=== PATIENT | male | born 1975 | race Caucasian/White ===

== ENCOUNTER 2018-12-05 18:34 | Observation (INO) ==
[2018-12-05] MEDS ORDERED: LABETALOL HCL IV 5 MG/ML 20ML IV STA ×3 (19:03→20:54)
[2018-12-05] MEDS ORDERED: SODIUM CHLORIDE 0.9% 1000ML 1,000 ML IV SCH (19:15)
--- NOTE | 2018-12-05 19:31 | CT Scan Report ---
CT OF THE HEAD WITHOUT CONTRAST CLINICAL HISTORY: left sided numbness, severe HTN COMPARISON STUDY: No previous studies for comparison. CT DOSE: 537.48 mGy.cm TECHNIQUE: Helical axial images of the head were obtained without IV contrast. Automated exposure con trol was utilized for the study. A dose lowering technique was utilized adhering to the principles o f ALARA. FINDINGS: No acute intracranial hemorrhage, midline shift or mass effect is present. Brain volume is normal. Ventricular system is normal. The basilar cisterns are patent. There are no extra-axial colle ctions. Nunez-white differentiation is maintained. There are no findings to suggest acute dural sinus thrombosis or acute territorial infarct. There are no significant calvarial abnormalities. There may be a few opacified left mastoid air cells. Visualized portions of the sinuses are clear. IMPRESSION: No acute intracranial findings. Electronically signed by: Brennen Ventura M.D. 12/05/2018 7:30 PM
[2018-12-05 19:47] LABS: Basophils # (auto) 0.03 K/uL (0-0.2); Basophils % (auto) 0.3 %; Eosinophils % (auto) 1.1 %; Hematocrit (blood only) 42.6 % (42-52); Hemoglobin 15.4 g/dL (14.0-18.0); Immature Granulocytes # (auto) 0.02 K/uL (0.00-0.02); Immature Granulocytes % (auto) 0.2 %; Lymphocytes # (auto) 3.14 K/uL (1.2-3.4); Lymphocytes % (auto) 33.4 %; Mean Corpuscular Hgb Conc 36.2 g/dL (32-36); Mean Corpuscular Volume 85.7 fL (80-100); Mean Platelet Volume 9.8 fL (7.4-10.4); Monocytes # (auto) 0.62 K/uL (0.11-0.59); Monocytes % (auto) 6.6 %; Neutrophils # (auto) 5.48 K/uL (1.4-6.5); Neutrophils % (auto) 58.4 %; Platelet Count 189 K/uL (130-400); RDW Coefficient of Variation 11.8 % (11.5-14.5); RDW Standard Deviation 36.7 fL (36.4-46.3); Red Blood Count 4.97 M/uL (4.7-6.1); White Blood Count 9.39 K/uL (4.8-10.8)
--- NOTE | 2018-12-05 19:51 | XRay Report ---
XR chest 1V portable CLINICAL HISTORY: weakness COMPARISON STUDY: No previous studies for comparison. FINDINGS: Lung volumes are normal. Lungs are clear. There is no pneumothorax or pleural effusion. Car diac size is normal. Mediastinal contours are normal. There is no evidence for pulmonary edema. IMPRESSION: No acute cardiopulmonary findings. Electronically signed by: Brennen Ventura M.D. 12/05/2018 7:49 PM
[2018-12-05] MEDS ORDERED: LORazepam 1 MG/2 ML VIAL IV STA (19:58)
[2018-12-05 20:03] LABS: Appearance Urine Clear (Clear); Bilirubin Urine Negative (Negative); Color Urine Yellow; Glucose Urine UA Negative (Negative); Ketones Urine Negative (Negative); Leukocyte Esterase Urine Negative (Negative); Nitrite Urine Negative (Negative); Protein Urine Negative (Negative); Specific Gravity Urine 1.014 (1.000-1.030); Urobilinogen Urine Negative (Negative)
[2018-12-05 20:04] LABS: Alanine Aminotransferase 42 U/L (12-78); Albumin Level 4.2 gm/dl (3.4-5.0); Aspartate Aminotransferase 19 U/L (15-37); BUN Creatinine Ratio 12.7 (10-20); Blood Urea Nitrogen 17 mg/dl (7-18); Calcium 8.9 mg/dl (8.5-10.1); Carbon Dioxide 30 mmol/L (21-32); Chloride 100 mmol/L (98-107); Creatinine Clr Calc Pharmacy 86.1 ml/min; Est GFR (African American) 74.8; Est GFR (Non-African American) 64.6; Glucose 98 mg/dl (70-99); Magnesium 1.9 mg/dl (1.8-2.4); Potassium 3.6 mmol/L (3.5-5.1); Sodium 137 mmol/L (136-145)
[2018-12-05 20:15] LABS: Albumin Globulin Ratio 1.1 (0.9-2); Alkaline Phosphatase 74 U/L (45-117); Bilirubin,Total 0.6 mg/dl (0.2-1); Total Protein 8.2 gm/dl (6.4-8.2); Troponin I < 0.015 ng/ml (0-0.045)
[2018-12-05 20:28] LABS: T4 Free Thyroxine 0.85 ng/dl (0.8-1.6)
[2018-12-05] MEDS ORDERED: ASPIRIN CHEW 324 MG PO STA (20:46)
--- NOTE | 2018-12-05 21:17 | Emergency Department Note ---
Entered by Eugene Torres acting as a scribe for ED Provider Note CHIEF COMPLAINT: Left sided tingling/HTN HISTORY OF PRESENT ILLNESS: The patient is a 43 year old male who presents to the Emergency Room with complaints of constant numbness and tingling in the left arm that began about 25 minutes ago. The patient also complains of numbness and tingling along the left side of his face in addition to the left arm/hand. The patient went to see his primary care physician today who found his systolic blood pressure to be in the 180s as well. He started the patient on 75 mg of Metoprolol and referred him to the ED. He has felt well for the past two days, and has never felt these symptoms in the past. The patient admits a history of anxiety and depression and has been under a significant amount of stress lately. He notes that his brother ended his own life a few weeks ago and that he has felt "overwhelmed" at work since he returned. He adds that he did feel some "tightness" in his chest today before he had to give a big presentation. The patient does have a history of alcohol abuse and notes that he would drink about 6 beers per day Monday/Monday and on weekends. He has cut back on this alcohol intake significantly. The patient denies any personal or family history of strokes, heart attacks, or diabetes. Pt denies LOC, fevers, chills, diaphoresis, visual changes, neck pain, nausea, vomiting, abdominal pain, back pain, melena, hematochezia, urinary symptoms, numbness, weakness, lymphadenopathy, rash, or other complaints. REVIEW OF SYSTEMS: See HPI for pertinent positives and negatives. A total of ten systems were reviewed and were otherwise negative. PMHx/PSHx: HTN Cellulitis anxiety/depression SOCIAL HISTORY: Patient lives at home. Employed PHYSICAL EXAM: GENERAL: Awake, alert, well appearing, no distress HENT: Normocephalic, atraumatic. TM's normal. Oropharynx unremarkable. EYES: PERRL. EOMI. Normal conjunctiva. Sclera non-icteric. NECK: Supple. No nuchal rigidity. FROM. No bruit. RESPIRATORY: Breath sounds equal. No wheezes. No rhonchi. Normal respiratory effort. CARDIAC: Normal rate. Regular rhythm. No murmurs. No rubs. No JVD. GI: Soft, non distended. No tenderness to palpation. No rebound or guarding. No masses. RECTAL: Deferred. MUSCULOSKELETAL: Unremarkable. No edema. No discoloration. Gross motor strength symmetric. NEURO: Cranial nerves 2-12 grossly intact. There is subjective numbness/ tingling to the left maxillary area of the trigeminal nerve, tingling to the left 4/5th digit. Normal sensorium. No sensory or motor deficits noted. Speech normal. No pronator drift. SKIN: No rash or jaundice noted. LYMPH: No adenopathy. EMERGENCY DEPARTMENT COURSE: 1853: Past medical records reviewed. The patient was evaluated in room A2, and a complete history and physical examination were performed. 1927: I checked on the patient. He notes a complete resolution of his symptoms. 2049: I updated the patient. 2055: I reviewed the patient's case with Dr. Rain Traylor Hospitalist. He will evaluate the patient for further management. MEDICAL DECISION MAKING: Nursing notes reviewed and agree them. The patient's history was concerning for left facial numbness and left arm numbness Differential diagnosis: Etiologies such as CVA, TIA, hypertensive emergency, ICH, metabolic, infection, hypo/hyperglycemia, electrolyte abnormalities, cardiac sources, intracerebral event, toxicologic, neurologic, as well as others were entertained. Physical examination: As above. The patient was significantly hypertensive ER treatment provided: IV Lock Continuous cardiac monitoring IV labetalol 10 mg x2, third dose ordered however the patient's blood pressure improved before this was administered Oral aspirin IV Ativan On reassessment the patient felt better. His blood pressure improved but he was still very hypertensive Diagnostics interpretation by me: ECG: Normal. No ischemia. The labs revealed an unremarkable CBC and chemistry panel. LFTs and troponin negative. TSH borderline but not significantly abnormal. Free T4 normal. Imaging studies: CT scan of the head was negative for acute pathology. Chest x-ray was negative. The patient had severe hypertension. He was treated with IV labetalol. His facial and arm numbness were concerning for TIA/CVA. His symptoms resolved in the emergency department. Due to the severe hypertension further management in the hospital was felt to be most appropriate. Consultation: A consultation was placed with the hospitalist. The case was discussed and diagnostics were reviewed. The patient was evaluated in the ER for further treatment. IMPRESSION: Hypertensive emergency Left facial numbness Left arm numbness CRITICAL CARE: I have personally spent greater than 36 minutes of critical care time in the direct management of this patient. This includes bedside care, interpretation of diagnostic studies, and testing, discussion with consultants, patient, and other required patient management activities. This 36 minutes is in excess of all separately billable procedures. PLAN: Admit The scribe's documentation has been prepared under my direction and personally reviewed by me in its entirety. I confirm that the note above accurately reflects all work, treatment, procedures, and medical decision making performed by me. Impression & Plan Hypertensive emergency, Left facial numbness, Left arm numbness Past Med/Surg History Medical History Anxiety Depression HTN (hypertension) Social History current occupational status: employed Feels Safe at Home: Yes Smoking Status: Never smoker Preferred Language: French Results & Data Vital Signs Vital Signs - 24 hr 12/05/18 18:34 12/05/18 18:37 12/05/18 18:58 Temperature 37.2 C Temperature Source Oral Sepsis Recent Fever Within 48 Hours No Sepsis Action Taken by Nursing No Action Required Pulse Rate 90 87 Pulse Rate [Apical] Pulse Rhythm Pulse Rhythm [Apical] Pulse Strength [Apical] Respiratory Rate 18 15 Respiratory Effort / Characteristics Non-Labored Spontaneous Respiratory Depth Normal Respiratory Pattern Regular Blood Pressure 235/137 H 202/146 H Blood Pressure [Right Arm] Blood Pressure Mean 169 164 Blood Pressure Mean [Right Arm] Blood Pressure Position Sitting Blood Pressure Position [Right Arm] Pulse Oximetry 97 98 Oxygen Delivery Method Room Air Room Air Oxygen Flow Rate 100 12/05/18 19:01 12/05/18 19:09 12/05/18 19:15 Temperature Temperature Source Sepsis Recent Fever Within 48 Hours Sepsis Action Taken by Nursing Pulse Rate 88 84 82 Pulse Rate [Apical] Pulse Rhythm Pulse Rhythm [Apical] Pulse Strength [Apical] Respiratory Rate 12 14 22 Respiratory Effort / Characteristics Respiratory Depth Respiratory Pattern Blood Pressure 215/142 H Blood Pressure [Right Arm] Blood Pressure Mean 166 Blood Pressure Mean [Right Arm] Blood Pressure Position Blood Pressure Position [Right Arm] Pulse Oximetry 97 97 96 Oxygen Delivery Method Oxygen Flow Rate 12/05/18 19:16 12/05/18 19:28 12/05/18 19:30 Temperature Temperature Source Sepsis Recent Fever Within 48 Hours Sepsis Action Taken by Nursing Pulse Rate 84 83 Pulse Rate [Apical] Pulse Rhythm Pulse Rhythm [Apical] Pulse Strength [Apical] Respiratory Rate 15 16 Respiratory Effort / Characteristics Respiratory Depth Respiratory Pattern Blood Pressure 195/135 H 201/135 H Blood Pressure [Right Arm] Blood Pressure Mean 155 157 Blood Pressure Mean [Right Arm] Blood Pressure Position Blood Pressure Position [Right Arm] Pulse Oximetry 97 95 Oxygen Delivery Method Oxygen Flow Rate 12/05/18 19:31 12/05/18 19:39 12/05/18 19:45 Temperature Temperature Source Sepsis Recent Fever Within 48 Hours Sepsis Action Taken by Nursing Pulse Rate 82 83 81 Pulse Rate [Apical] Pulse Rhythm Pulse Rhythm [Apical] Pulse Strength [Apical] Respiratory Rate 17 23 19 Respiratory Effort / Characteristics Respiratory Depth Respiratory Pattern Blood Pressure 201/137 H 197/137 H Blood Pressure [Right Arm] Blood Pressure Mean 158 157 Blood Pressure Mean [Right Arm] Blood Pressure Position Blood Pressure Position [Right Arm] Pulse Oximetry 96 97 96 Oxygen Delivery Method Oxygen Flow Rate 12/05/18 19:46 12/05/18 19:54 12/05/18 20:00 Temperature Temperature Source Sepsis Recent Fever Within 48 Hours Sepsis Action Taken by Nursing Pulse Rate 81 82 83 Pulse Rate [Apical] Pulse Rhythm Regular Pulse Rhythm [Apical] Pulse Strength [Apical] Respiratory Rate 16 20 19 Respiratory Effort / Characteristics Respiratory Depth Respiratory Pattern Blood Pressure 183/132 H Blood Pressure [Right Arm] Blood Pressure Mean 149 Blood Pressure Mean [Right Arm] Blood Pressure Position Blood Pressure Position [Right Arm] Pulse Oximetry 94 96 Oxygen Delivery Method Room Air Oxygen Flow Rate 12/05/18 20:01 12/05/18 20:15 12/05/18 20:16 Temperature Temperature Source Sepsis Recent Fever Within 48 Hours Sepsis Action Taken by Nursing Pulse Rate 84 86 83 Pulse Rate [Apical] Pulse Rhythm Pulse Rhythm [Apical] Pulse Strength [Apical] Respiratory Rate 18 19 21 Respiratory Effort / Characteristics Respiratory Depth Respiratory Pattern Blood Pressure 186/132 H 197/133 H Blood Pressure [Right Arm] Blood Pressure Mean 150 154 Blood Pressure Mean [Right Arm] Blood Pressure Position Blood Pressure Position [Right Arm] Pulse Oximetry Oxygen Delivery Method Oxygen Flow Rate 12/05/18 20:30 12/05/18 20:31 12/05/18 20:43 Temperature Temperature Source Sepsis Recent Fever Within 48 Hours Sepsis Action Taken by Nursing Pulse Rate 85 83 80 Pulse Rate [Apical] Pulse Rhythm Pulse Rhythm [Apical] Pulse Strength [Apical] Respiratory Rate 19 18 22 Respiratory Effort / Characteristics Respiratory Depth Respiratory Pattern Blood Pressure 185/134 H 200/139 H Blood Pressure [Right Arm] Blood Pressure Mean 151 159 Blood Pressure Mean [Right Arm] Blood Pressure Position Blood Pressure Position [Right Arm] Pulse Oximetry Oxygen Delivery Method Oxygen Flow Rate 12/05/18 20:45 12/05/18 20:46 12/05/18 21:27 Temperature Temperature Source Sepsis Recent Fever Within 48 Hours Sepsis Action Taken by Nursing Pulse Rate 82 83 Pulse Rate [Apical] 85 Pulse Rhythm Pulse Rhythm [Apical] Regular Pulse Strength [Apical] Normal Respiratory Rate 22 27 H 20 Respiratory Effort / Characteristics Non-Labored Respiratory Depth Normal Respiratory Pattern Regular Blood Pressure 196/132 H Blood Pressure [Right Arm] 160/109 H Blood Pressure Mean 153 Blood Pressure Mean [Right Arm] 126 Blood Pressure Position Blood Pressure Position [Right Arm] Sitting Pulse Oximetry 99 Oxygen Delivery Method Room Air Oxygen Flow Rate 12/05/18 22:00 Temperature Temperature Source Sepsis Recent Fever Within 48 Hours Sepsis Action Taken by Nursing Pulse Rate Pulse Rate [Apical] 83 Pulse Rhythm Pulse Rhythm [Apical] Regular Pulse Strength [Apical] Normal Respiratory Rate 20 Respiratory Effort / Characteristics Respiratory Depth Normal Respiratory Pattern Regular Blood Pressure Blood Pressure [Right Arm] 160/109 H Blood Pressure Mean Blood Pressure Mean [Right Arm] 126 Blood Pressure Position Blood Pressure Position [Right Arm] Sitting Pulse Oximetry 99 Oxygen Delivery Method Room Air Oxygen Flow Rate Home Medications Current Medication List: was personally reviewed by me Laboratory Data Attestation: I reviewed the patient's lab results. Result diagrams: 12/05/18 19:30 12/05/18 19:30 Lab Results 12/05/18 12/05/18 12/05/18 Range/Units 18:40 19:30 19:30 WBC 9.39 (4.8-10.8) K/uL RBC 4.97 (4.7-6.1) M/uL Hgb 15.4 (14.0-18.0) g/dL Hct 42.6 (42-52) % MCV 85.7 (80-100) fL MCH 31.0 (25-34) pg MCHC 36.2 H (32-36) g/dL RDW Std Deviation 36.7 (36.4-46.3) fL RDW Coeff of Kei 11.8 (11.5-14.5) % Plt Count 189 (130-400) K/uL MPV 9.8 (7.4-10.4) fL Immature Gran % (Auto) 0.2 % Neut % (Auto) 58.4 % Lymph % (Auto) 33.4 % Mccone % (Auto) 6.6 % Eos % (Auto) 1.1 % Baso % (Auto) 0.3 % Immature Gran # (Auto) 0.02 (0.00-0.02) K/uL Neut # (Auto) 5.48 (1.4-6.5) K/uL Lymph # (Auto) 3.14 (1.2-3.4) K/uL Mccone # (Auto) 0.62 H (0.11-0.59) K/uL Eos # (Auto) 0.10 (0-0.5) K/uL Baso # (Auto) 0.03 (0-0.2) K/uL Sodium 137 (136-145) mmol/L Potassium 3.6 (3.5-5.1) mmol/L Chloride 100 (98-107) mmol/L Carbon Dioxide 30 (21-32) mmol/L Anion Gap 7.0 (3-11) BUN 17 (7-18) mg/dl Creatinine 1.33 (0.6-1.4) mg/dl Est Cr Clr Drug Dosing 86.1 ml/min Est GFR ( Amer) 74.8 Est GFR (Non-Af Amer) 64.6 BUN/Creatinine Ratio 12.7 (10-20) Glucose 98 (70-99) mg/dl Calcium 8.9 (8.5-10.1) mg/dl Magnesium 1.9 (1.8-2.4) mg/dl Total Bilirubin 0.6 (0.2-1) mg/dl AST 19 (15-37) U/L ALT 42 (12-78) U/L Alkaline Phosphatase 74 (45-117) U/L Troponin I < 0.015 (0-0.045) ng/ml Total Protein 8.2 (6.4-8.2) gm/dl Albumin 4.2 (3.4-5.0) gm/dl Globulin 4.0 (2.5-4.0) gm/dl Albumin/Globulin Ratio 1.1 (0.9-2) TSH 4.650 H (0.300-4.500) uIu/ml Free T4 0.85 (0.8-1.6) ng/dl Urine Color Yellow Urine Appearance Clear (Clear) Urine pH 6.0 (4.5-7.5) Ur Specific Beverly 1.014 (1.000-1.030) Urine Protein Negative (Negative) Urine Glucose (UA) Negative (Negative) Urine Ketones Negative (Negative) Urine Blood Negative (Negative) Urine Nitrite Negative (Negative) Urine Bilirubin Negative (Negative) Urine Urobilinogen Negative (Negative) Ur Leukocyte Esterase Negative (Negative) Administered Medications Sodium Chloride (Nss 1000ml) 1,000 mls @ 125 mls/hr IV .Q8H ANAYELI Stop: 12/06/18 03:14 Last Admin: 12/05/18 20:49 Dose: 125 mls/hr Discontinued Medications Lorazepam (Ativan) 1 mg in 2 mls @ 2 mls/min IV NOW STA Stop: 12/05/18 19:59 Last Admin: 12/05/18 20:49 Dose: 2 mls/min Labetalol HCl (Normodyne) 10 mg IV NOW STA Stop: 12/05/18 19:04 Last Admin: 12/05/18 19:12 Dose: 10 mg Labetalol HCl (Normodyne) 10 mg IV NOW STA Stop: 12/05/18 19:36 Last Admin: 12/05/18 19:44 Dose: 10 mg Imaging Data Attestation: I personally reviewed and interpreted this imaging study as follows : Radiologist's Impression: CT OF THE HEAD WITHOUT CONTRAST CLINICAL HISTORY: left sided numbness, severe HTN COMPARISON STUDY: No previous studies for comparison. CT DOSE: 537.48 mGy.cm TECHNIQUE: Helical axial images of the head were obtained without IV contrast. Automated exposure control was utilized for the study. A dose lowering technique was utilized adhering to the principles of ALARA. FINDINGS: No acute intracranial hemorrhage, midline shift or mass effect is present. Brain volume is normal. Ventricular system is normal. The basilar cisterns are patent. There are no extra-axial collections. Nunez-white differentiation is maintained. There are no findings to suggest acute dural sinus thrombosis or acute territorial infarct. There are no significant calvarial abnormalities. There may be a few opacified left mastoid air cells. Visualized portions of the sinuses are clear. IMPRESSION: No acute intracranial findings. Electronically signed by: Brennen Ventura M.D. 12/05/2018 7:30 PM XR chest 1V portable CLINICAL HISTORY: weakness COMPARISON STUDY: No previous studies for comparison. FINDINGS: Lung volumes are normal. Lungs are clear. There is no pneumothorax or pleural effusion. Cardiac size is normal. Mediastinal contours are normal. There is no evidence for pulmonary edema. IMPRESSION: No acute cardiopulmonary findings. Electronically signed by: Brennen Ventura M.D. 12/05/2018 7:49 PM ECG Data Attestation: I personally reviewed and interpreted this ECG as follows: Indication: other (numbness/tingling) Rate (beats per minute): 81 Rhythm: normal sinus Findings: no PAC, no PVC, no ST depression and no ST elevation Blood Pressure Blood Pressure Findings: Elevated blood pressure Blood Pressure Disposition: further management by hospitalist Discharge Plan Visit Data Chief Complaint: Neuro Symptoms/Deficit Stated Complaint: LEFT SIDE ARM/HAND NUMBNESS, MOUTH AND HEAD TOO ED Provider: Ranulfo Felix Discharge Problem: Hypertensive emergency, Left facial numbness, Left arm numbness Patient Disposition: Being Evaluated by Hospitalist Forms Stand Alone Forms: My [facility] Prescriptions Prescriptions: No Action bupropion HCl [Wellbutrin SR] 150 mg tablet sustained-release 12 hr 150 mg PO DAILY RF: 0 trazodone 50 mg tablet 100 mg PO HS RF: 0 omeprazole 20 mg capsule,delayed release(DR/EC) 20 mg PO DAILY RF: 0 metoprolol succinate [Toprol XL] 25 mg tablet extended release 24 hr 25 mg PO DAILY RF: 0 Z-Quil 1 dose PO HS RF: 0 Referrals Referrals: Ken Iglesias MD [Staff Physician] - The scribe's documentation has been prepared under my direction and personally reviewed by me in its entirety. I confirm that the note above accurately reflects all work, treatment, procedures, and medical decision making performed by me.
[2018-12-05] MEDS ORDERED: LORazepam 1 MG/2 ML VIAL IV PRN (23:18)
[2018-12-05] MEDS ORDERED: ALUMINUM/MAGNESIUM SUSP 30 ML UDC PO PRN (23:18)
[2018-12-05] MEDS ORDERED: ACETAMINOPHEN 325 MG TAB PO PRN (23:18)
[2018-12-05] MEDS ORDERED: NITROGLYCERIN SL 0.4 MG/TAB TAB SL PRN (23:18)
[2018-12-05] MEDS ORDERED: PHARMACIST DISCHARGE MED REC CONSULT PRN (23:18)
[2018-12-05] MEDS ORDERED: LABETALOL HCL IV 5 MG/ML 20ML IV PRN (23:18)
[2018-12-05] MEDS ORDERED: LISINOPRIL 10 MG TAB PO STA (23:18)
[2018-12-05] MEDS ORDERED: ONDANSETRON INJ 2 MG/ML 2 ML VIAL IV PRN (23:18)
[2018-12-05] MEDS ORDERED: THIAMINE HCL 100 MG in SYRINGE 9 ML IV ONE (23:30)
[2018-12-06] MEDS ORDERED: GADOBUTROL 65ML VIAL IV PRN (00:56)
--- NOTE | 2018-12-06 01:50 | History and Physical Report ---
DATE OF ADMISSION: 12/05/2018 CHIEF COMPLAINT: Elevated blood pressure and numbness and tingliness in his left hand and left facial region. HISTORY OF PRESENT ILLNESS: This is a 43-year-old male with past medical history significant for GERD, anxiety, depression, recent diagnosis of high blood pressure and was started on Toprol xl, recent stress because his brother . Initially, he went to family doctor last week and his blood pressure was 185. Was given couple of doses of clonidine and started him metoprolol xl 25 mg per day and later increased to 50 mg per day. On dec 03 he went for followup check up and his BP was still high and the toprol xl dose was increased to 75mg daily Today he had a presentation to give, he was feeling very anxious and short of breath and after presentation he felt better. But then felt some tingliness and numbness in the left hand and around the left facial region around the mouth area and he came to the ER . in the Er on presentation his systolic blood pressure was at 235 and diastolic level was 135. At that time, he was given labetalol and his blood pressures slowly improved and as the blood pressure was coming down, his symptoms resolved so stroke alert was not called. Currently, the blood pressure has come down to 160/109 after a few days of labetalol. Currently resting comfortably and denies any headache, no blurred vision, no numbness in the face and hand, speech is clear. No chest pain, no shortness of breath, no nausea, no vomiting, no abdominal pain. Normal bowel and bladder movements. Appetite is good. Otherwise, he is doing okay. He says he also drinking 6 beers per day 3 times a week. Denies any withdrawal symptoms on days he is not drinking. He says lately he is more depressed after loss of his brother. depressed. ALLERGIES: No known drug allergies. PAST MEDICAL HISTORY: As mentioned above. PAST SURGICAL HISTORY: Inguinal hernia repair. MEDICATIONS: The patient currently on Toprol-XL 75 mg p.o. daily, Wellbutrin 150 mg p.o. b.i.d., omeprazole 20 mg p.o. daily, trazodone 100 mg p.o. at bedtime. FAMILY HISTORY: Significant for father has aortic aneurysm repaired. Mother has knee replacements. Sister has allergies. SOCIAL HISTORY: , quit smoking in 2008. Smoked half a pack a day for 22 years, currently he is drinking 6 beers a day on Tuesdays, Wednesdays, and Saturdays and smokes marijuana every 6 months, once in a while. REVIEW OF SYMPTOMS: As per HPI. Rest of review of symptoms negative. PHYSICAL EXAMINATION: GENERAL: The patient is of moderate built, not in acute distress. VITAL SIGNS: Temperature 37.2, pulse 83, respiratory rate 20, blood pressure when he came in was 235/137, currently 160/109, oxygen 99% on room air. HEENT: No pallor, no icterus. Pupils equal, round, and react to light. NECK: No JVD. No neck mass. No carotid bruits. CARDIOVASCULAR: S1, S2 heard, regular rate and rhythm, no murmur, no gallop. RESPIRATORY SYSTEM: Normal AP diameter. No accessory muscle use. No wheezing, no crackles. ABDOMEN: Soft, bowel sounds present. Nontender. No distention. CENTRAL NERVOUS SYSTEM: Cranial nerves II-XII grossly intact. Pulse 5/5 in all extremities. Sensation is intact. No pronator drift. Coordination of movements normal. Heel to toe test normal. Alert and oriented . EXTREMITIES: No edema or erythema. LABS: WBC 11.3, hemoglobin 15.4, hematocrit 42.6, platelets 189. Sodium 137, potassium 3.6, chloride 100, bicarbonate 30, BUN 17, creatinine 1.3, serum glucose 98, calcium 8.9, magnesium 1.9, total bilirubin 0.6, AST 19, ALT 42, alkaline phosphatase is 74. Troponin I less than 0.015. TSH 4.6, free T4 of 0.85. Urinalysis negative. CT of the head, no acute intracranial findings. Chest x-ray, no acute cardiopulmonary findings. EKG shows normal sinus rhythm, rate of 81. No acute ST changes seen. ASSESSMENT AND PLAN: This is a 43-year-old male who presents with stroke-like symptoms and found to have hypertensive urgency-emergency. 1. Stroke-like symptoms with numbness and tingliness in the left hand and some numbness around the mouth region most likely related to his hypertensive urgency-emergency . Blood pressure was very high on presentation. Symptoms improved with blood pressure control.. CT head was unremarkable, but we will do a stroke protocol with MRI scans, echocardiogram, and neuro checks. We will start him on high dose statin, aspirin, follow fasting lipid profile, hemoglobin A1c levels, and closely monitoring in tele floor. If MRI shows stroke, we will consult neurology. 2. Hypertensive emergency-urgency recent dx of HTN and was started on toprol xl by PCP. currently on Toprol xl 75 mg. Blood pressure not i under control. Currently, he received IV labetalol in the Emergency Room. We will continue IV labetalol p.r.n. We will continue his Toprol-XL 75 mg p.o. daily and add lisinopril 10 mg daily, and closely monitor his blood pressure and follow echocardiogram. 3. History of depression and anxiety. Continue Wellbutrin. Recent loss of brother will consult psychiatry in morning. 4. Alcoholism. The patient has been drinking 6 beers a day on Tuesdays, Wednesdays, and Saturdays only 3 times a week. The patient says he does not get withdrawal when he does not drinks. Needs counseling. We will give him thiamine, multivitamins and place on IV Ativan p.r.n. and closely monitor for any withdrawal symptoms. 5. Deep vein thrombosis prophylaxis and sequential compression devices for now. DISPOSITION: Closely monitor in tele floor. Expect discharge home and follow with his family doctor. Level I full code. MTDD
[2018-12-06 06:31] LABS: Basophils # (auto) 0.02 K/uL (0-0.2); Basophils % (auto) 0.2 %; Eosinophils % (auto) 1.2 %; Hematocrit (blood only) 38.8 % (42-52); Hemoglobin 13.9 g/dL (14.0-18.0); Immature Granulocytes # (auto) 0.02 K/uL (0.00-0.02); Immature Granulocytes % (auto) 0.2 %; Lymphocytes # (auto) 2.68 K/uL (1.2-3.4); Lymphocytes % (auto) 32.3 %; Mean Corpuscular Hgb Conc 35.8 g/dL (32-36); Mean Platelet Volume 9.5 fL (7.4-10.4); Monocytes # (auto) 0.53 K/uL (0.11-0.59); Monocytes % (auto) 6.4 %; Neutrophils # (auto) 4.94 K/uL (1.4-6.5); Neutrophils % (auto) 59.7 %; Platelet Count 153 K/uL (130-400); RDW Standard Deviation 38.6 fL (36.4-46.3); Red Blood Count 4.41 M/uL (4.7-6.1); White Blood Count 8.29 K/uL (4.8-10.8)
--- NOTE | 2018-12-06 06:52 | Magnetic Resonance Report ---
MR brain wo/w con CLINICAL HISTORY: cva/tia neuropathy. Pain. Mental status change. COMPARISON STUDY: No previous studies for comparison. TECHNIQUE: Utilizing a 1.5 Angie magnet and dedicated coil, multiplanar, multiecho imaging of the br ain was performed pre and postcontrast administration. IV administration of 8 mL of Gadavist contras t was uneventful. FINDINGS: Diffusion images are considered negative for an acute ischemic event. Signal characteristic s of the cerebellar as well as cerebral hemispheres are unremarkable. Ventricular system is midline. Postcontrast images are negative for an enhancing lesion. Sella and parasellar regions are unremarkab le. IMPRESSION: Normal study. The above report was generated using voice recognition software. It may contain grammatical, syntax or spelling errors. Electronically signed by: Mik Meraz M.D. 12/06/2018 6:50 AM
[2018-12-06 06:53] LABS: Estimated Average Glucose 88 mg/dl
[2018-12-06 07:08] LABS: BUN Creatinine Ratio 12.6 (10-20); Calcium 8.3 mg/dl (8.5-10.1); Creatinine Clr Calc Pharmacy 92.7 ml/min; Est GFR (African American) 83.1; Est GFR (Non-African American) 71.7; Potassium 3.6 mmol/L (3.5-5.1)
[2018-12-06] MEDS ORDERED: METOPROLOL SUCC 25MG EXT REL TAB PO SCH (09:00)
[2018-12-06] MEDS ORDERED: THIAMINE HCL 50 MG TABLET PO SCH (09:00)
[2018-12-06] MEDS ORDERED: LISINOPRIL 10 MG TAB PO SCH (09:00)
[2018-12-06] MEDS ORDERED: CEROVITE ADV FORMULA TAB PO SCH (09:00)
[2018-12-06] MEDS ORDERED: ASPIRIN 81 MG ECTAB PO SCH (09:00)
[2018-12-06] MEDS ORDERED: ATORVASTATIN 40 MG TAB PO SCH (09:00)
[2018-12-06] MEDS ORDERED: BuPROPion SR 150 MG TABCR PO SCH (09:00)
[2018-12-06] MEDS ORDERED: PANTOprazole 40 MG TAB PO SCH (09:00)
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
[2018-12-06] MEDS ORDERED: LORazepam 1 MG TAB PO PRN (11:55)
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
[2018-12-06] MEDS ORDERED: FLUOXETINE HCL 20 MG CAP PO SCH (12:45)
--- NOTE | 2018-12-06 16:15 | Hospitalist Progress Note ---
Date of Service December 06, 2018 Assessment & Plan (1) Hypertensive emergency: Recently diagnosed with hypertension. Significant emotional stress. Presented to ED with paresthesiae of left hand and face. BP 235/135 in ED. Treated with IV labetalol and admitted for further evaluation. Metoprolol continued. Started on lisinopril. BP's improved, but still fluctuating. Patient anxious to be discharged to home. Discharge on metoprolol succinate 75 mg daily + lisinopril 10 mg daily. Patient advised to obtain BP monitor for home monitoring. Should have work-up for secondary etiologies of hypertension. Serum electrolytes normal- doubt hyperaldosteronism or hypercortisolism. Outpatient duplex of renal arteries and 24-hour urine for VMA and metanephrines recommended. (2) Left facial numbness: Presented with paresthesiae of left face and left hand, associated with elevated blood pressures. No evidence of cerebrovascular event per CT or MRI. Cardiac rhythm was NSR. Echo did not show any evidence of cardiac thrombus or right-left shunt. Carotid duplex recommended- can be done as outpatient. (3) Left arm numbness: As noted above. (4) Depression with anxiety: History of anxiety and depression. Recent stress related to in family and other stressors. Seen by Psychiatry. Started on fluoxetine 20 mg daily. Recommended that buproprion be tapered. Outpatient follow-up with [facility] [place][Note 2] recommended. (5) Dyslipidemia: Total cholesterol 219, LDL-abhilash 121, HDL 36, TG 311. Diet, weight-loss, exercise recommended. Recheck lipid profile in a few months. (6) DVT prophylaxis: Low risk for VTE per IMPROVE risk assessment model. SCD's ordered. Ambulating. (7) Discharge planning issues: Discharged to home. Has appointment for BP check in clinic tomorrow. Family Medicine follow-up with Dr. Raffi Moore. Subjective Feels well. No headache. Paresthesiae have resolved. No focal neuro symptoms. No CP, SOB, nausea, vomiting. Seen by Psychiatry. Anxious to be discharged. Physical Exam 2 Vital Signs (Past 24 Hours): Last Vital Signs Temp 36.7 C 12/06/18 15:20 Pulse 73 12/06/18 15:20 Resp 18 12/06/18 15:20 BP 166/110 H 12/06/18 15:20 Pulse Ox 97 12/06/18 15:20 Constitutional: no acute distress Respiratory: no respiratory distress Auscultation: lungs clear to auscultation bilaterally Cardiovascular: Rate/Rhythm: regular rate and regular rhythm Heart Sounds: + gallop (S4) Vessels: no JVD Extremities: no calf tenderness and no edema Gastrointestinal (Abdomen): normal bowel sounds, soft, nontender, no hepatosplenomegaly Skin: no rashes, warm and dry Neurologic: PERRL, EOMI, no facial palsy, no dysarthria, no aphasia motor 5/5 bilat finger to nose and heel-roque intact bilat Psychiatric: Orientation: alert and oriented x 3
[2018-12-06] MEDS ORDERED: STROKE PATIENT DISCHARGE STA (16:29)
[2018-12-06] MEDS ORDERED: TRAZODONE HCL 50 MG TAB PO SCH (21:00)
--- NOTE | 2018-12-07 08:12 | Discharge Summary ---
Date of Service Date of admission: 12/05/18 Date of discharge: 12/06/18 Admission HPI Per Admitting Provider This a 43-year-old male with past medical history significant for GERD, anxiety, depression, recent diagnosis of high blood pressure and was started on Toprol xl, recent stress because his brother . Initially, he went to family doctor last week and his blood pressure was 185. Was given couple of doses of clonidine and started him metoprolol xl 25 mg per day and later increased to 50 mg per day. On dec 03 he went for followup check up and his BP was still high and the toprol xl dose was increased to 75mg daily Today he had a presentation to give, he was feeling very anxious and short of breath and after presentation he felt better. But then felt some tingliness and numbness in the left hand and around the left facial region around the mouth area and he came to the ER . in the Er on presentation his systolic blood pressure was at 235 and diastolic level was 135. At that time, he was given labetalol and his blood pressures slowly improved and as the blood pressure was coming down, his symptoms resolved so stroke alert was not called. Currently, the blood pressure has come down to 160/109 after a few days of labetalol. Currently resting comfortably and denies any headache, no blurred vision, no numbness in the face and hand, speech is clear. No chest pain, no shortness of breath, no nausea, no vomiting, no abdominal pain. Normal bowel and bladder movements. Appetite is good. Otherwise, he is doing okay. He says he also drinking 6 beers per day 3 times a week. Denies any withdrawal symptoms on days he is not drinking. He says lately he is more depressed after loss of his brother. depressed. Admission Exam Per Admitting Provider GENERAL: The patient is of moderate built, not in acute distress. VITAL SIGNS: Temperature 37.2, pulse 83, respiratory rate 20, blood pressure when he came in was 235/137, currently 160/109, oxygen 99% on room air. HEENT: No pallor, no icterus. Pupils equal, round, and react to light. NECK: No JVD. No neck mass. No carotid bruits. CARDIOVASCULAR: S1, S2 heard, regular rate and rhythm, no murmur, no gallop. RESPIRATORY SYSTEM: Normal AP diameter. No accessory muscle use. No wheezing, no crackles. ABDOMEN: Soft, bowel sounds present. Nontender. No distention. CENTRAL NERVOUS SYSTEM: Cranial nerves II-XII grossly intact. Pulse 5/5 in all extremities. Sensation is intact. No pronator drift. Coordination of movements normal. Heel to toe test normal. Alert and oriented . EXTREMITIES: No edema or erythema. Principal Diagnosis hypertensive emergency paresthesiae left face and hand dyslipidemia anxiety depression Discharge Data Allergies Allergy/AdvReac Type Severity Reaction Status Date / Time No Known Allergies Allergy Unverified 12/05/18 19:45 Consultations 12/05/18 20:54 ED Decision to Admit Stat 12/05/18 23:18 Consult Case Management - Discharge Planning Routine 12/06/18 08:00 Consult Psychiatry Routine Ordered Studies 12/05/18 19:03 CT head/brain wo con Stat 12/06/18 00:09 MR brain wo/w con Routine Hospital Course (1) Hypertensive emergency: Recently diagnosed with hypertension. Significant emotional stress. Presented to ED with paresthesiae of left hand and face. BP 235/135 in ED. Treated with IV labetalol and admitted for further evaluation. Metoprolol continued. Started on lisinopril. BP's improved, but still fluctuating. Patient anxious to be discharged to home. Discharge on metoprolol succinate 75 mg daily + lisinopril 10 mg daily. Patient advised to obtain BP monitor for home monitoring. Should have work-up for secondary etiologies of hypertension. Serum electrolytes normal- doubt hyperaldosteronism or hypercortisolism. Outpatient duplex of renal arteries and 24-hour urine for VMA and metanephrines recommended. (2) Left facial numbness: Presented with paresthesiae of left face and left hand, associated with elevated blood pressures. No evidence of cerebrovascular event per CT or MRI. Cardiac rhythm was NSR. Echo did not show any evidence of cardiac thrombus or right-left shunt. Carotid duplex recommended- can be done as outpatient. (3) Left arm numbness: As noted above. (4) Depression with anxiety: History of anxiety and depression. Recent stress related to in family and other stressors. Seen by Psychiatry. Started on fluoxetine 20 mg daily. Recommended that buproprion be tapered. Outpatient follow-up with [facility] recommended. (5) Dyslipidemia: Total cholesterol 219, LDL-abhilash 121, HDL 36, TG 311. Diet, weight-loss, exercise recommended. Recheck lipid profile in a few months. (6) DVT prophylaxis: Low risk for VTE per IMPROVE risk assessment model. SCD's ordered. Ambulating. (7) Discharge planning issues: Discharged to home. Has appointment for BP check in clinic tomorrow. Family Medicine follow-up with Dr. Raffi Moore. Total Time Total Time Spent Total Time Spent (In Minutes): 30 Discharge Plan Discharge Items Patient Disposition: Home - Self-Care Reason For Visit: STROKE LIKE SYMPTOMS Discharge Diagnosis: high blood pressure no sign of stroke Condition: Good Discharge Goals: Decrease discomfort and Improve disease control Activity: Per 'Additional Instructions' section Exercise/Sports: Gradually increase as tolerated Non-emergency contact: Primary Care Provider and Hospitalist Call non-emergency contact if: you have any medication questions and your symptoms worsen Follow-up/Referrals: Raffi Moore [Primary Care Provider] - (12/07/2018 11:00 AM Nurse Uriel Silverman [facility] 12/13/2018 7:00 PM Raffi Moore DO ) Diet: Heart Healthy Add Provider Instructions: APPOINTMENTS: Please call [facility] for appointment. OTHER INSTRUCTIONS: CHOLESTEROL PROFILE: total cholesterol 219 LDL cholesterol 121 HDL choleseterol 36 triglycerides 311 Check your blood pressures 2 or 3 times a day and keep diary. Work on your diet, weight loss, and exercise. Please ask Dr. Moore to order following studies: carotid duplex renal artery duplex 24-hour urine collection for VMA and metanephrines Seek medical attention if you have: * severe headache, visual changes, difficulty speaking, weakness or numbness in arms or legs, problems with balance * temperature above 101 * chest pain or trouble breathing * abdominal pain, nausea, vomiting * diarrhea, dark stools or bloody stools * any unanswered questions or concerns Call 911 if symptoms are severe. Call if you have any questions or problems. My cell # is [phone]. You can also reach a [facility] hospitalist on duty at [facility] 24 hours a day by calling [phone]. Risk Factors for Stroke: You can reduce your chances of stroke by working with your medical provider to adopt a healthy lifestyle. Some specific ways to lower your chance of stroke are: * If you are a smoker, now is the time to stop smoking cigarettes * If you are diabetic, improve the control of your blood sugars * Avoid excessive amounts of alcohol * Control high blood pressure * Lose weight if you are overweight * Be sure to lead an active lifestyle * Eat a healthy diet low in salt, cholesterol and fat You should know about other risk factors for stroke that you are unable to control. These include: * Age 55 years or older * Male gender * Certain racial groups: , or / * Family History of Stroke, Mini stroke or Heart Attack * Sickle Cell Disease Follow Up: It is important for you to keep your follow up appointments with your medical provider. Who to Call and When: Medical Emergencies: Call 911 immediately if you experience any of the following warning signs and symptoms of Stroke: * Sudden numbness or weakness of the face, arm or leg, especially on one side of the body * Sudden confusion, trouble speaking or understanding * Sudden trouble seeing in one or both eyes * Sudden trouble walking, dizziness, loss of balance or coordination * Sudden severe headache with no cause Do not delay calling 911 if you experience any warning signs or symptoms of a stroke. Delay in seeking medical attention may affect what treatments can be given to you. . Prescriptions: New bupropion HCl 150 mg tablet sustained-release 12 hr 150 mg PO DAILY Qty: 30 RF: 5 lisinopril 10 mg tablet 10 mg PO DAILY Qty: 30 RF: 5 fluoxetine 20 mg capsule 20 mg PO DAILY Qty: 30 RF: 5 Continue trazodone 50 mg tablet 100 mg PO HS RF: 0 omeprazole 20 mg capsule,delayed release(DR/EC) 20 mg PO DAILY RF: 0 metoprolol succinate [Toprol XL] 25 mg tablet extended release 24 hr 75 mg PO DAILY RF: 0 Z-Quil 1 dose PO HS RF: 0 Discontinued bupropion HCl [Wellbutrin SR] 150 mg tablet sustained-release 12 hr 150 mg PO BID RF: 0 Stand-Alone Forms: [employer] Work/School Release (Inpt) [employer]ega/Other Patient Handouts: Fluoxetine Hydrochloride Oral tablet [Depression /Mood Disorders], Bupropion Hydrochloride Oral tablet extended release 24 hour ..., Lisinopril Oral tablet, Anxiety Body Response, Stroke Sx, Relaxation Progressive, Depression Mind Body, Stress Relief Relaxation Discharge Orders: Discharge Order (Routine); Ordered 12/06/18 Ordered By: Ranulfo Hardwick Admission Data Admit Date/Time: 12/05/18 22:20 Attending Provider: Ranulfo Hardwick Admit Provider: Juanjo Rodrigez Primary Care Provider: Raffi Moore Other Providers: Juanjo Rodrigez ; Viky Arreola Service: Telemetry Other Interventions: Discharge Summary Assessment (RN) Last Done: 12/06/18 16:44 DC Date/Time DO NOT enter until pt leaves facility: 12/06/18 17:15
[2018-12-07] MEDS ORDERED: BuPROPion SR 150 MG TABCR PO SCH (09:00)
== END 2018-12-06 17:15 | disposition home or self-care (01) ==
LOC: ED 18:34 → 2S 22:20 → INTOOBSV 22:20 → 2S 23:12